=== PATIENT | female | born 1950 | race Caucasian/White ===

== ENCOUNTER 2017-03-11 03:06 | Emergency (ER) | payer OTHER ==
[~2017-03-11] VITALS: Ht 167.6 cm; Wt 83.9 kg
--- NOTE | ~2017-03-11 | EKG ---
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
[2017-03-11 03:33] LABS: HEMATOCRIT 38.8 % (37.0-47.0); HEMOGLOBIN 13.1 gm/dL (12.0-15.0); MANUAL DIFF YES; MCH 27.4 pg (26.0-34.0); MCHC 33.7 g/dL (28.0-37.0); MCV 81.4 fL (80.0-100.0); PLATELET COUNT 203 thou/uL (150-400); RBC 4.77 mil/uL (4.20-5.00); RDW 14.1 % (10.5-14.5); WBC 3.6 thou/uL (4.0-11.0)
[2017-03-11 03:39] LABS: URINE BILIRUBIN NEGATIVE (Negative); URINE BLOOD TRACE (Negative); URINE COLOR YELLOW; URINE GLUCOSE-RANDOM* NEGATIVE (Negative); URINE KETONES 1+ (Negative); URINE LEUKOCYTES-REFLEX NEGATIVE (Negative); URINE PROTEIN (DIPSTICK) TRACE (Negative); URINE SPECIFIC GRAVITY 1.025 (1.003-1.035); URINE UROBILINOGEN 0.2 E.U./dl (0.2-1.0)
[2017-03-11 03:41] LABS: ANION GAP 10 mmol/L (7-16); BUN 18 mg/dL (7-18); CALCIUM 8.4 mg/dL (8.5-10.1); CHLORIDE 104 mmol/L (98-107); CO2 23 mmol/L (21-32); GLUCOSE 117 mg/dL (74-106); POTASSIUM 3.7 mmol/L (3.5-5.1); SODIUM 137 mmol/L (136-145)
[2017-03-11 03:48] LABS: ALBUMIN 3.6 g/dL (3.4-5.0); ALKALINE PHOSPHATASE 92 U/L (46-116); SGOT 27 U/L (15-37); SGPT 22 U/L (30-65); TOTAL BILIRUBIN 0.3 mg/dL (<0.1-1.0); TROPONIN-I < 0.04 ng/mL (<0.04-0.07)
[2017-03-11 03:51] LABS: HYALINE CASTS 0-3 Few /LPF (None Seen)
[2017-03-11 03:54] LABS: CRYSTALS None Seen /LPF (None Seen); SQUAMOUS None Seen /LPF (0-3); URINE RBC 0-2 Rare /HPF (0-2); URINE WBC-REFLEX 6-15 Few /HPF (0-5)
[2017-03-11 05:21] LABS: ABSOLUTE NEUTROPHILS 2.7 thou/uL (1.4-8.2); TOTAL CELL COUNT 50
[2017-03-11] MEDS ORDERED: ZOFRAN ODT4 MG PO (05:32)
[2017-03-11 06:14] VITALS: BP 118/76
== END 2017-03-11 06:16 | disposition home or self-care (01) ==
LOC: ER 03:06
PROVIDERS: Emergency Medicine
DX: R11.2 Nausea with vomiting, unspecified (principal); R19.7 Diarrhea, unspecified; B34.9 Viral infection, unspecified

== ENCOUNTER 2017-11-01 19:54 | Emergency (ER) | payer OTHER ==
[~2017-11-01] VITALS: Ht 167.6 cm; Wt 80.7 kg
[~2017-11-01 19:54] MED LIST: ZOFRAN ODT4 MG PO
[2017-11-01] MEDS ORDERED: NAPROSYN500 MG PO (21:27)
[2017-11-01] MEDS ORDERED: TRAMADOL 50 MG50 MG PO (21:27)
== END 2017-11-01 21:45 | disposition home or self-care (01) ==
LOC: ER 19:54
DX: I80.9 Phlebitis and thrombophlebitis of unspecified site (principal)

== ENCOUNTER → 2019-11-06 | Outpatient (CLI) | payer OTHER ==
[~2019-11-06] MED LIST changes: +NAPROSYN500 MG PO; +TRAMADOL 50 MG50 MG PO
== END ==
LOC: ULTRA 11:00
DX: E04.2 Nontoxic multinodular goiter (principal)

== ENCOUNTER → 2019-11-12 | Outpatient (CLI) | payer OTHER | LOC: CAT 07:45 | DX: Z13.6 Encounter for screening for cardiovascular disorders (principal); E78.00 Pure hypercholesterolemia, unspecified; I25.10 Atherosclerotic heart disease of native coronary artery without angina pectoris ==

== ENCOUNTER → 2019-11-26 | Outpatient (CLI) | payer OTHER | LOC: CAT 12:35 | PROVIDERS: Nurse Practitioner | DX: E01.0 Iodine-deficiency related diffuse (endemic) goiter (principal); R13.10 Dysphagia, unspecified; R59.9 Enlarged lymph nodes, unspecified ==

== ENCOUNTER 2021-02-23 05:34 | Emergency (ER) | payer OTHER ==
[~2021-02-23] VITALS: Ht 167.6 cm; Wt 81.7 kg
[2021-02-23] MEDS ORDERED: ROSUVASTATIN CAL5 MG PO (05:52)
[2021-02-23 06:17] LABS: ABSOLUTE NEUTROPHILS 5.2 thou/uL (1.4-8.2); BASOPHILS 0.6 % (0.0-2.0); EOSINOPHILS 2.4 % (0.0-3.0); HEMATOCRIT 42.4 % (37.0-47.0); HEMOGLOBIN 13.9 gm/dL (12.0-15.0); LYMPHOCYTES 30.4 % (24.0-44.0); MCH 27.1 pg (26.0-34.0); MCHC 32.9 g/dL (28.0-37.0); MCV 82.4 fL (80.0-100.0); MONOCYTES 6.5 % (1.0-8.0); PLATELET COUNT 287 thou/uL (150-400); POLYS 60.1 % (36.0-66.0); RBC 5.14 mil/uL (4.20-5.00); RDW 13.9 % (10.5-14.5); WBC 8.7 thou/uL (4.0-11.0)
[2021-02-23 06:30] LABS: CALCIUM 9.6 mg/dL (8.5-10.1); CREATININE 1.2 mg/dL (0.6-1.0); POTASSIUM 4.2 mmol/L (3.5-5.1)
[2021-02-23 06:35] LABS: APTT 25.1 Seconds (24.5-32.8); D-DIMER 0.48 ug/mLFEU (0.19-0.50); INR 0.94; PROTIME 10.3 Seconds (10.5-12.1)
[2021-02-23 06:36] LABS: TOTAL BILIRUBIN 0.5 mg/dL (0.2-1.0); TOTAL PROTEIN 8.6 g/dL (6.4-8.2)
--- NOTE | 2021-02-23 07:00 | EKG ---
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
[2021-02-23 07:11] LABS: URINE BILIRUBIN NEGATIVE (Negative); URINE BLOOD NEGATIVE (Negative); URINE CLARITY CLEAR; URINE COLOR YELLOW; URINE GLUCOSE-RANDOM* NEGATIVE (Negative); URINE KETONES NEGATIVE (Negative); URINE NITRITE-REFLEX NEGATIVE (Negative); URINE PROTEIN (DIPSTICK) NEGATIVE (Negative); URINE UROBILINOGEN 0.2 E.U./dl (0.2-1.0)
[2021-02-23 07:12] LABS: URINE LEUKOCYTES-REFLEX 2+ (Negative)
[2021-02-23 07:25] LABS: BACTERIA-REFLEX None Seen /HPF (None Seen); CASTS None Seen /LPF (None Seen); SQUAMOUS 4-10 Moderate /LPF (0-3); URINE RBC None Seen /HPF (NONE SEEN); URINE WBC-REFLEX 0-5 Rare /HPF (0-5)
[2021-02-23 07:26] LABS: CRYSTALS None Seen /LPF (None Seen)
[2021-02-23 07:43] VITALS: BP 131/68
== END 2021-02-23 07:57 | disposition still patient (30) ==
LOC: ER 05:34
PROVIDERS: Emergency Medicine
DX: R00.2 Palpitations (principal); Z79.899 Other long term (current) drug therapy

== ENCOUNTER → 2021-03-24 | Outpatient (CLI) | payer OTHER ==
[~2021-03-24] MED LIST changes: +ROSUVASTATIN CAL5 MG PO
== END ==
LOC: MRI 10:33
PROVIDERS: ATTEND Family Medicine
DX: M51.36 Other intervertebral disc degeneration, lumbar region (principal); M48.061 Spinal stenosis, lumbar region without neurogenic claudication; K80.20 Calculus of gallbladder without cholecystitis without obstruction; M25.78 Osteophyte, vertebrae; M47.816 Spondylosis without myelopathy or radiculopathy, lumbar region; R20.0 Anesthesia of skin; R20.2 Paresthesia of skin

== ENCOUNTER 2021-06-12 22:21 | Emergency (ER) | payer OTHER ==
[~2021-06-12] VITALS: Ht 167.6 cm; Wt 76.2 kg
[2021-06-12 22:49] LABS: ABSOLUTE NEUTROPHILS 2.2 thou/uL (1.4-8.2); BASOPHILS 0.5 % (0.0-2.0); EOSINOPHILS 0.1 % (0.0-3.0); HEMATOCRIT 37.5 % (37.0-47.0); HEMOGLOBIN 12.3 gm/dL (12.0-15.0); LYMPHOCYTES 26.5 % (24.0-44.0); MCH 26.2 pg (26.0-34.0); MCHC 32.7 g/dL (28.0-37.0); MCV 80.2 fL (80.0-100.0); MONOCYTES 11.2 % (1.0-8.0); PLATELET COUNT 170 thou/uL (150-400); POLYS 61.7 % (36.0-66.0); RBC 4.68 mil/uL (4.20-5.00); RDW 14.5 % (10.5-14.5); WBC 3.5 thou/uL (4.0-11.0)
[2021-06-12 22:58] LABS: CALCIUM 8.1 mg/dL (8.5-10.1); POTASSIUM 3.9 mmol/L (3.5-5.1)
[2021-06-12 23:09] LABS: ALBUMIN 3.2 g/dL (3.4-5.0); TOTAL BILIRUBIN 0.4 mg/dL (0.2-1.0)
[2021-06-12 23:10] VITALS: BP 131/65
[2021-06-12] MEDS ORDERED: ZOFRAN4 MG PO (23:11)
== END 2021-06-12 23:21 | disposition home or self-care (01) ==
LOC: ER 22:21
PROVIDERS: Emergency Medicine
DX: U07.1 COVID-19 (principal); R05 Cough; R50.9 Fever, unspecified; R06.02 Shortness of breath; Z79.1 Long term (current) use of non-steroidal anti-inflammatories (NSAID)

== ENCOUNTER 2021-06-14 16:01 | Emergency (ER) | payer OTHER ==
[~2021-06-14] VITALS: Ht 167.6 cm; Wt 76.2 kg
[~2021-06-14 16:01] MED LIST changes: +ZOFRAN4 MG PO
[2021-06-14 17:31] LABS: ABSOLUTE NEUTROPHILS 1.9 thou/uL (1.4-8.2); BASOPHILS 0.5 % (0.0-2.0); HEMATOCRIT 37.5 % (37.0-47.0); HEMOGLOBIN 12.2 gm/dL (12.0-15.0); LYMPHOCYTES 26.8 % (24.0-44.0); MCH 26.5 pg (26.0-34.0); MCHC 32.7 g/dL (28.0-37.0); PLATELET COUNT 160 thou/uL (150-400); POLYS 57.7 % (36.0-66.0); RBC 4.62 mil/uL (4.20-5.00); RDW 14.7 % (10.5-14.5); WBC 3.4 thou/uL (4.0-11.0)
[2021-06-14 17:44] LABS: ANION GAP 11 mmol/L (7-16); BUN 21 mg/dL (7-18); CALCIUM 7.7 mg/dL (8.5-10.1); CHLORIDE 103 mmol/L (98-107); CO2 25 mmol/L (21-32); CREATININE 1.2 mg/dL (0.6-1.0); GLUCOSE 95 mg/dL (74-106); POTASSIUM 3.9 mmol/L (3.5-5.1); SODIUM 139 mmol/L (136-145)
[2021-06-14 17:55] LABS: LIPASE 199 U/L (73-393); SGOT 44 U/L (15-37); SGPT 50 U/L (30-65); TOTAL BILIRUBIN 0.4 mg/dL (0.2-1.0); TOTAL PROTEIN 6.8 g/dL (6.4-8.2); TROPONIN-I <0.06 ng/mL (<0.06)
[2021-06-14] MEDS ORDERED: ZOFRAN ODT4 MG PO (18:39)
[2021-06-14 19:35] VITALS: BP 126/60
== END 2021-06-14 20:00 | disposition home or self-care (01) ==
LOC: ER 16:01
PROVIDERS: Emergency Medicine
DX: U07.1 COVID-19 (principal); E86.0 Dehydration; R11.2 Nausea with vomiting, unspecified; Z79.1 Long term (current) use of non-steroidal anti-inflammatories (NSAID); Z79.899 Other long term (current) drug therapy